=== PATIENT | female | born 1930 | race Caucasian/White ===

== ENCOUNTER 2017-06-12 01:01 | Emergency (ER) | payer OTHER ==
[~2017-06-12] VITALS: Ht 162.6 cm; Wt 71.5 kg
[~2017-06-12 01:01] MED LIST: ALPRAZOLAM0.25 MG PO; ALPRAZOLAM0.5 MG PO; ALTACE1.25 M1 PO; AMBIEN5 M1 PO; ARICEPT5 MG PO; ASPIR 8181 M1 PO; Ambien PO; COLACE100 MG PO; Cipro PO; Colace PO; DELTASONE DOSEPA5 MG PO; DESYREL100 MG PO; DIOVAN160 MG PO; DITROPAN XL5 MG PO; DITROPAN5 MG G-TUBE; DITROPAN5 MG PO; DOLOPHINE HCL5 MG PO; Ditropan PO; ECOTRIN325 MG PO; EFFEXOR XR150 MG; FENTANYL PATCH TD; FUROSEMIDE20 MG PO; IMDUR30 MG PO; IMURAN50 MG PO; Imuran PO; KLONOPIN1 MG PO; LANTUS 3 M100 UNITS/ SC; LANTUS100 UNIT/1 SQ; LASIX20 MG PO; LEVAQUIN750 MG PO; LEVOTHROID,S0.075 MG PO; LEVOTHROID75 MCG PO; LOPID600 M1 PO; LYRICA50 MG PO; Levaquin PO; Levothroid,Synthroid PO; METHADONE10 MG PO; METHADONE5 MG PO; METOPROLOL SUCC25 MG PO; MILK OF MAG PO; MILK OF MAG W/360 ML PO; MIRALAX; MIRALAX, GLYCOL1 PK1 PO; MIRALAX17 GM PO; Methadone PO; Miralax, Glycolax PO; NOVOLIN R100 UNIT/1 IM; NOVOLIN R100 UNIT/1 SC; NOVOLOG PE100 UNITS/ SC; NOVOLOG100 UNIT/2 SC; OS-CAL 500+D C1 EAC1 PO; OSCAL 250 W/VI250 MG PO; OXYCODONE5 MG PO; OYST-CAL D, OS500 M1 PO; Oyst-Cal D, Oscal W/ PO; PAXIL20 MG PO; PAXIL30 MG PO; PAXIL40 MG PO; PREDNISONE10 MG PO; PREDNISONE20 MG PO; PREDNISONE5 M2 PO; PREDNISONE5 MG PO; PRILOSEC40 MG PO; PROTONIX40 MG PO; PROVENTIL17 GM IH; PROZAC20 M1 PO; PROZAC20 MG PO; Paxil PO; SEROPHENE50 MG PO; SEROQUEL200 MG PO; SEROQUEL50 MG PO; SEROquel PO; TIROSINT100 MCG PO; TOPROL XL50 MG PO; TRAMADOL HCL50 MG PO; TYLENOL 8 HOUR650 MG PO; TYLENOL EXTRA500 MG PO; TYLENOL REGULA325 MG PO; TYLENOL325 M1 PO; Toprol XL PO; Tylenol Regular Stre PO; VYTORIN 10-201 EACH PO; Vitamin B-12 PO; XANAX0.5 MG PO; Xanax PO; ZOFRAN4 MG PO; predniSONE PO
[2017-06-12 01:41] LABS: BASOPHIL COUNT 0.1 K/uL (0-0.1); EOSINOPHIL (%) 3.1 % (0-5); EOSINOPHIL COUNT 0.2 K/uL (0-0.3); HEMATOCRIT 41.2 % (36.0-46.0); IMMATURE GRANULOCYTE (%) 0.5 % (0.0-0.7); INSTRUMENT ABS NEUTROPHIL CT 3.6 K/uL; LYMPHOCYTE COUNT 2.8 K/uL (1.0-2.8); MCH 30.5 PG (29.0-34.0); MCV 89.8 FL (83-99); MEAN PLAT.VOLUME 10.6 uM^3 (9.5-12.4); MONOCYTE (%) 9.1 % (3-12); MONOCYTE COUNT 0.7 K/uL (0-0.8); NEUTROPHIL (%) 48.2 % (45-76); NEUTROPHIL COUNT 3.6 K/uL (1.8-6.4); PLATELET COUNT 141 K/uL (156-360); RBC DIS.WIDTH-CV 13.2 % (11.8-14.6); RBC DIS.WIDTH-SD 43.2 % (39-53); RED BLOOD COUNT 4.59 M/uL (3.80-5.20); WHITE BLOOD COUNT 7.4 K/uL (4.1-10.2)
[2017-06-12 01:50] LABS: ADD MIUA? YES; BILIRUBIN NEGATIVE; BLOOD NEGATIVE; COLOR YELLOW ((YELLOW)); GLUCOSE (STRIP) NEGATIVE; KETONES NEGATIVE; LEUKOCYTES LARGE; NITRITE POSITIVE; PROTEIN (STRIP) NEGATIVE; SPECIFIC GRAVITY 1.006 (1.000-1.030); UROBILINOGEN 0.2 MG/DL (0.2-1.0)
[2017-06-12 01:53] LABS: CHLORIDE 101 mEq/L (99-109); POTASSIUM 4.2 mEq/L (3.7-5.4); SODIUM 138 mEq/L (136-147)
[2017-06-12 01:56] LABS: GLUCOSE 155 mg/dL (70-99)
[2017-06-12 01:57] LABS: ANION GAP 12 MEQ/L (2-14)
[2017-06-12 01:58] LABS: TOTAL BILIRUBIN 0.6 mg/dL (0.0-1.0)
[2017-06-12 01:59] LABS: ALKALINE PHOSPHATASE 55 IU/L (3-129); GFR ESTIMATE (CALCULATED) > 59 mL/min/
[2017-06-12 02:00] LABS: UREA NITROGEN (BUN) 15 mg/dL (9-23)
[2017-06-12 02:03] LABS: LIPASE 6 U/L (1.0-51.0)
[2017-06-12 02:04] LABS: BACTERIA RARE /HPF; EPITHELIAL CELLS RARE /HPF; MUCUS TRACE /LPF; RED BLOOD CELLS 0-5 /HPF (0-5); UCUL ADDED? YES; WHITE BLOOD CELLS 15-20 /HPF (0-5)
[2017-06-12] MEDS ORDERED: LEVO-T100 MCG PO (02:41)
[2017-06-12] MEDS ORDERED: OYSTER SHELL 51 EACH PO (02:43)
[2017-06-12] MEDS ORDERED: PREDNISONE5 MG PO (02:44)
[2017-06-12] MEDS ORDERED: QUETIAPINE FUM400 MG PO (02:49)
[2017-06-12] MEDS ORDERED: ALPRAZOLAM0.5 MG PO (02:50)
[2017-06-12] MEDS ORDERED: VENLAFAXINE HCL75 M3 PO (02:52)
[2017-06-12] MEDS ORDERED: KEFLEX500 MG PO (03:05)
[2017-06-12 04:20] VITALS: BP 147/92
== END 2017-06-12 04:23 | disposition home or self-care (01) ==
LOC: EME → EDBD 01:01 → EME 04:23
PROVIDERS: Emergency Medicine
DX: N10 Acute pyelonephritis (principal); E78.5 Hyperlipidemia, unspecified; I10 Essential (primary) hypertension; E11.9 Type 2 diabetes mellitus without complications; F03.90 Unspecified dementia, unspecified severity, without behavioral disturbance, psychotic disturbance, mood disturbance, and anxiety; E03.9 Hypothyroidism, unspecified; K21.9 Gastro-esophageal reflux disease without esophagitis
CPT/HCPCS: 71010; 74177; 80053; 81003; 83690; 85025; 87077; 87086; 87186; 99281; 99285; J0696; J7040; J7050